=== PATIENT | male | born 1945 | race Caucasian/White ===

== ENCOUNTER 2018-05-12 15:38 | Inpatient (IN) | payer MEDICARE, OTHER ==
[~2018-05-12] VITALS: Ht 175.3 cm; Wt 63.1 kg
[2018-05-12] MEDS: AMINO AC 3%/ELECTROLYTE/GLYCER 1,000 ML IV SCH (16:45)
[2018-05-12] MEDS ORDERED: BISACODYL 10 MG SUPP.RECT. PR PRN (16:45)
[2018-05-12 17:00] VITALS: BP 132/69
[2018-05-12 18:17] LABS: BASO % 0 % (0-3); EOS # 0.1 x10^3/uL (0.0-0.7); EOS % 1 % (0-3); HEMATOCRIT 28.5 % (39.0-53.0); HEMOGLOBIN 9.2 g/dL (13.0-17.5); LYMPH # 0.8 x10^3/uL (1.0-4.8); LYMPH % 9 % (24-48); MEAN CORPUSCULAR HEMOGLOBIN 29 pg (25-35); MEAN CORPUSCULAR HGB CONC 32 g/dL (31-37); MEAN CORPUSCULAR VOLUME 89 fL (79-100); MONO # 0.8 x10^3/uL (0.0-1.1); MONO % 10 % (0-9); NEUT # 6.4 x10^3uL (1.8-7.7); NEUT % 80 % (31-73); PLATELET COUNT 210 x10^3/uL (140-400); RED BLOOD COUNT 3.19 x10^6/uL (4.30-5.70); RED CELL DISTRIBUTION WIDTH 13.9 % (11.5-14.5); WHITE BLOOD COUNT 8.1 x10^3/uL (4.0-11.0)
[2018-05-12 18:39] LABS: ALBUMIN 2.4 g/dL (3.4-5.0); ALBUMIN/GLOBULIN RATIO 0.6 (1.0-1.7); CALCIUM 8.5 mg/dL (8.5-10.1); CREATININE 0.8 mg/dL (0.7-1.3); GFR 94.5; TOTAL BILIRUBIN 0.3 mg/dL (0.2-1.0); TOTAL PROTEIN 6.3 g/dL (6.4-8.2)
[2018-05-12] MEDS ORDERED: LINA5TAB PO (18:41)
[2018-05-12] MEDS ORDERED: GLIP5TAB3 PO (18:41)
[2018-05-12] MEDS ORDERED: ONDA4TAB12 PO (18:41)
[2018-05-12] MEDS ORDERED: TRAM50TA PO (18:41)
[2018-05-12] MEDS ORDERED: DONE10TA61 PO (18:41)
[2018-05-12] MEDS ORDERED: PANT20TA2 PO (18:41)
[2018-05-12] MEDS ORDERED: LIDO30CR TP (18:41)
[2018-05-12] MEDS ORDERED: CLOP75TA PO (18:41)
[2018-05-12] MEDS ORDERED: INSU100I13 SQ (18:41)
[2018-05-12] MEDS ORDERED: SERT50TA PO (18:41)
[2018-05-12] MEDS ORDERED: LISI10TA2 PO (18:41)
[2018-05-12] MEDS ORDERED: DOCU100C28 PO (18:41)
[2018-05-12 19:00] VITALS: BP 144/86
[2018-05-12] MEDS: INSULIN GLARGINE 300 UNITS/3 ML INSULN.PEN. SQ SCH (21:00)
[2018-05-13] VITALS (12 sets, daily range): BP systolic 115–153; BP diastolic 58–99
[2018-05-13] MEDS: AMINO AC 3%/ELECTROLYTE/GLYCER 1,000 ML IV SCH ×2 (06:47→17:23)
--- NOTE | 2018-05-13 09:17 | NUR ---
IP: Pt is mrsa screen + from [facility] requiring contact precautions.
--- NOTE | 2018-05-13 10:09 | HP ---
ADMIT DATE: 05/12/2018 HISTORY OF PRESENT ILLNESS: The patient is a 73-year-old male patient who was apparently seen at the [facility] in [place] for abdominal pain as he had left-sided inguinal hernia that became painful. He denied any nausea, vomiting. He did say that he was passing gas, but has not had any bowel movement since last Saturday. He was offered to be transferred to [facility] and/or the [facility] in [facility], but the family declined and wanted him to stay around this area, he was thus admitted to [facility] where I saw him yesterday morning. Yesterday When I saw him, he continued to complain of abdominal pain, mostly in the left lower quadrant. He had large what seemed to be left inguinal hernia that was tender to touch and was not completely reducible. He apparently had had a CT scan of the abdomen and pelvis with contrast dye at the [facility], which showed that he had left inguinal hernia containing small bowel with short segment dilated small bowel in the left lower abdomen with air fluid levels up to 4.2 cm in diameter and some mildly dilated small bowel loop in the left abdomen also with air fluid level and there was no evidence of bowel obstruction or focal inflammation. He had tiny calcification, the appendix was normal size and no adjacent fat stranding and because he continued to complain of pain, tenderness in that area and because of the finding of the CT scan, I recommended that he be transferred to [facility] to be evaluated by the surgical team. PAST MEDICAL HISTORY: Significant for type 2 diabetes. He has apparently urinary retention with neurogenic bladder requiring indwelling Haynes catheter. He has severe osteoporosis, multiple compression fractures of his thoracic and lumbar vertebrae, has severe kyphoscoliosis, has also coronary artery disease. PAST SURGICAL HISTORY: Apparently unremarkable. FAMILY HISTORY: Noncontributory. SOCIAL HISTORY: He is , lives with his at home. His is very supportive. He does not smoke, drink alcohol or use recreational drugs. He normally has all his health care needs at the [facility]. ALLERGIES: HE IS ALLERGIC TO DICLOFENAC, TETANUS AND IMMUNOGLOBULIN. MEDICATIONS: He is normally on Colace 100 mg daily, finasteride 5 mg daily, linagliptin 5 mg daily, lisinopril 10 mg once a day, Plavix 75 mg once a day, Protonix 40 mg once a day, glipizide 5 mg twice a day. He is on insulin and Lantus, sertraline 50 mg at bedtime, Aricept 10 mg at bedtime, ondansetron 8 mg every 8 hours, tramadol 50 mg as needed. He was also on procalamine 80 mL per hour, bisacodyl 10 mg suppositories. PHYSICAL EXAMINATION: GENERAL: When I examined him, he looked well and was clearly in no apparent respiratory distress, pale, but no jaundice, cyanosis, or thyromegaly. No jugular venous distention. No lower limb edema. VITAL SIGNS: His heart rate was 54, blood pressure was 131/78, temperature was 98.6, respiratory rate 22 and oxygen saturation was 94% on room air. HEAD, EYES, EARS, NOSE AND THROAT: Showed normocephalic, atraumatic. NECK: Supple. HEART: Showed normal first and second heart sounds with no gallop, rub or murmur. CHEST: Clear to auscultation. No crepitation or rhonchi. ABDOMEN: Distended, soft, nontender. There is no guarding or rigidity. No organomegaly. He has large left-sided inguinal hernia that is reducible, but the patient has pain. His bowel sounds are normal. NEUROLOGIC: He was awake, alert, responding appropriately. All his cranial nerves were intact. EXTREMITIES: He moves all extremities without difficulty. He ambulates with a walker. He has severe kyphoscoliosis due to multiple compression fractures of the thoracic and lumbar vertebra. LABORATORY DATA: At [facility] yesterday showed a white cell count of 8500, hemoglobin was 9, hematocrit 27, MCV 89 and platelet count was normal. His serum sodium was 140, potassium 3.6, chloride 106, bicarbonate 28, anion gap of 6, BUN 25, creatinine 0.8, estimated GFR was 94 mL per minute. His glucose was 101, calcium was 7.7. His D-dimer was high at 2.65. Urinalysis showed the urine was yellow, clear with a pH of 7, specific gravity of 1.010. The urine was negative for protein, glucose, ketones, trace of blood, positive for nitrite and moderate amount of leukocyte esterase, 11-20 wbc's and moderate amount of bacteria. ASSESSMENT AND PLAN: Given finding on his CT scan and fact that there is dilated small bowel and he has some complaint of pain in that area, I recommended transferring him to [facility]. I will consult the surgical team. Apparently, he was seen before by surgical team and they did not recommend any surgical intervention as long as he has no symptoms. Meanwhile, I can get him n.p.o., continue with procalamine till he is evaluated by the surgical team. CLARITA SOLIZ MD DR: RIC/jon JOB#: [id number] / [id number]
--- NOTE | 2018-05-13 11:43 | NUR ---
CODE STATUS: Per pt and , pt full code.
--- NOTE | 2018-05-13 11:43 | PDOC2 ---
CONSULT Date of Consult Date of Consult DATE: 05/13/18 TIME: 11:28 Reason for Consult Reason for Consult: left inguinal hernia Referring Physician Referring Physician: Dr Ayala Identification/Chief Complaint Chief Complaint LLQ pain Source Source: Chart review, Patient History of Present Illness Reason for Visit: Mr Law is a 73 yo gentleman who has had a left inguinal hernia for some time. He has been having LLQ pain and left inguinal pain of late. A recent CT scan done at the [facility] in [place] reportedly showed small bowel in the hernia with an element of obstruction. He was offered transfer to [facility] or the [facility] but he preferred to come to [facility]. Past Medical History Cardiovascular: CAD Pulmonary: No pertinent hx GI: Constipation Musculoskeletal: Osteoarthritis, Other (kyphosis) Endocrine: Diabetes Past Surgical History Past Surgical History: No pertinent history Family History Family History: No Significant Social History No ALCOHOL: none Drugs: None Lives: with Family Current Medications Current Medications Current Medications Amino Acids/ Glycerin/ Electrolytes 1,000 ml @ 80 mls/hr [id number] IV ; Start 02/17 at 16:45 Bisacodyl (Dulcolax Supp) 10 mg PRN DAILY PRN [place] CONSTIPATION; Start 05/12/18 at 16:45 Insulin Glargine (Lantus) 11 units QHS SQ ; Start 05/12/18 at 21:00 Active Scripts Active Reported Tramadol Hcl 50 Mg Tablet 50 Mg PO Q6HRS PRN Glucotrol (Glipizide) 5 Mg Tablet 1 Tab PO BID Lantus Solostar (Insulin Glargine,Hum.rec.anlog) 100 Unit/1 Ml Insuln.pen 11 Unit SQ QHS Tradjenta (Linagliptin) 5 Mg Tablet 5 Mg PO DAILY Protonix (Pantoprazole Sodium) 20 Mg Tablet. 2 Tab PO DAILY Zoloft (Sertraline Hcl) 50 Mg Tablet 1 Tab PO DAILY Lisinopril 10 Mg Tablet 1 Tab PO DAILY Clopidogrel (Clopidogrel Bisulfate) 75 Mg Tablet 1 Tab PO DAILY Aricept (Donepezil Hcl) 10 Mg Tablet 1 Tab PO QHS Docusate Sodium 100 Mg Capsule 1 Cap PO PRN DAILY PRN Lidocaine-Prilocaine Cream (Lidocaine/Prilocaine) 30 Gm Cream..g. 1 Anny TP PRN BID PRN Ondansetron Odt (Ondansetron) 4 Mg Tab.rapdis 1 Tab PO PRN Q6-8HRS Allergies Allergies: Coded Allergies: I S O L A T I O N *CONTACT* (Verified Allergy, Unknown, 05/13/18) mrsa diclofenac (Verified Allergy, Unknown, 05/12/18) tetanus immune globulin (Verified Allergy, Unknown, 05/12/18) ROS Genitourinary: YES Retention, YES Other (neurogenic bladder) Physical Exam General: Alert, No acute distress, Other (chronically ill appearing gentleman in NAD) HEENT: Atraumatic Lungs: Normal air movement Heart: Regular rate Abdomen: Soft, Other (reducible left inguinal fullness) Extremities: Other (arthritic changes) Neuro: Normal speech MUSCULOSKELETAL: Other (marked kyphosis) Vitals VITALS Vital Signs Date Time Temp Pulse Resp B/P (MAP) Pulse Ox O2 Delivery O2 Flow Rate FiO2 05/13/18 11:17 99.4 56 18 139/64 (89) 95 Room Air 99.4 Labs Labs Laboratory Tests Test 05/12/18 18:00 05/12/18 20:50 05/13/18 07:39 White Blood Count 8.1 x10^3/uL (4.0-11.0) Red Blood Count 3.19 x10^6/uL (4.30-5.70) Hemoglobin 9.2 g/dL (13.0-17.5) Hematocrit 28.5 % (39.0-53.0) Mean Corpuscular Volume 89 fL (79-100) Mean Corpuscular Hemoglobin 29 pg (25-35) Mean Corpuscular Hemoglobin Concent 32 g/dL (31-37) Red Cell Distribution Width 13.9 % (11.5-14.5) Platelet Count 210 x10^3/uL (140-400) Neutrophils (%) (Auto) 80 % (31-73) Lymphocytes (%) (Auto) 9 % (24-48) Monocytes (%) (Auto) 10 % (0-9) Eosinophils (%) (Auto) 1 % (0-3) Basophils (%) (Auto) 0 % (0-3) Neutrophils # (Auto) 6.4 x10^3uL (1.8-7.7) Lymphocytes # (Auto) 0.8 x10^3/uL (1.0-4.8) Monocytes # (Auto) 0.8 x10^3/uL (0.0-1.1) Eosinophils # (Auto) 0.1 x10^3/uL (0.0-0.7) Basophils # (Auto) 0.0 x10^3/uL (0.0-0.2) Sodium Level 139 mmol/L (136-145) Potassium Level 4.0 mmol/L (3.5-5.1) Chloride Level 103 mmol/L (98-107) Carbon Dioxide Level 28 mmol/L (21-32) Anion Gap 8 (6-14) Blood Urea Nitrogen 20 mg/dL (8-26) Creatinine 0.8 mg/dL (0.7-1.3) Estimated GFR (Cockcroft-Gault) 94.5 BUN/Creatinine Ratio 25 (6-20) Glucose Level 164 mg/dL (70-99) Calcium Level 8.5 mg/dL (8.5-10.1) Total Bilirubin 0.3 mg/dL (0.2-1.0) Aspartate Amino Transf (AST/SGOT) 19 U/L (15-37) Alanine Aminotransferase (ALT/SGPT) 15 U/L (16-63) Alkaline Phosphatase 65 U/L (46-116) Lactate Dehydrogenase 131 U/L (85-227) Total Protein 6.3 g/dL (6.4-8.2) Albumin 2.4 g/dL (3.4-5.0) Albumin/Globulin Ratio 0.6 (1.0-1.7) Glucose (Fingerstick) 165 mg/dL (70-99) 214 mg/dL (70-99) Laboratory Tests Test 05/12/18 18:00 05/12/18 20:50 05/13/18 07:39 White Blood Count 8.1 x10^3/uL (4.0-11.0) Red Blood Count 3.19 x10^6/uL (4.30-5.70) Hemoglobin 9.2 g/dL (13.0-17.5) Hematocrit 28.5 % (39.0-53.0) Mean Corpuscular Volume 89 fL (79-100) Mean Corpuscular Hemoglobin 29 pg (25-35) Mean Corpuscular Hemoglobin Concent 32 g/dL (31-37) Red Cell Distribution Width 13.9 % (11.5-14.5) Platelet Count 210 x10^3/uL (140-400) Neutrophils (%) (Auto) 80 % (31-73) Lymphocytes (%) (Auto) 9 % (24-48) Monocytes (%) (Auto) 10 % (0-9) Eosinophils (%) (Auto) 1 % (0-3) Basophils (%) (Auto) 0 % (0-3) Neutrophils # (Auto) 6.4 x10^3uL (1.8-7.7) Lymphocytes # (Auto) 0.8 x10^3/uL (1.0-4.8) Monocytes # (Auto) 0.8 x10^3/uL (0.0-1.1) Eosinophils # (Auto) 0.1 x10^3/uL (0.0-0.7) Basophils # (Auto) 0.0 x10^3/uL (0.0-0.2) Sodium Level 139 mmol/L (136-145) Potassium Level 4.0 mmol/L (3.5-5.1) Chloride Level 103 mmol/L (98-107) Carbon Dioxide Level 28 mmol/L (21-32) Anion Gap 8 (6-14) Blood Urea Nitrogen 20 mg/dL (8-26) Creatinine 0.8 mg/dL (0.7-1.3) Estimated GFR (Cockcroft-Gault) 94.5 BUN/Creatinine Ratio 25 (6-20) Glucose Level 164 mg/dL (70-99) Calcium Level 8.5 mg/dL (8.5-10.1) Total Bilirubin 0.3 mg/dL (0.2-1.0) Aspartate Amino Transf (AST/SGOT) 19 U/L (15-37) Alanine Aminotransferase (ALT/SGPT) 15 U/L (16-63) Alkaline Phosphatase 65 U/L (46-116) Lactate Dehydrogenase 131 U/L (85-227) Total Protein 6.3 g/dL (6.4-8.2) Albumin 2.4 g/dL (3.4-5.0) Albumin/Globulin Ratio 0.6 (1.0-1.7) Glucose (Fingerstick) 165 mg/dL (70-99) 214 mg/dL (70-99) Assessment/Plan Assessment/Plan left inguinal hernia with intermittent incarceration creating at least a partial SBO severe osteoporosis offered repair with possible l/s explained risks including but not limited to bleeding, infection, recurrence, possible need for an open procedure with bowel resection he understands and will proceed Thanks for consult KEZIA RUANO MD May 13, 2018 11:43
[2018-05-13] MEDS ORDERED: LIDOCAINE 2% PF Vial for OR 5 ML VIAL. ONE (12:00)
[2018-05-13] MEDS ORDERED: SUCCINYLCHOLINE 200 MG/10 ML VIAL. ONE (12:00)
[2018-05-13] MEDS ORDERED: ROCURONIUM 50 MG/5 ML VIAL. ONE (12:00)
[2018-05-13] MEDS ORDERED: fentaNYL PF VIAL 100 MCG/2 ML VIAL ONE (12:00)
[2018-05-13] MEDS ORDERED: PROPOFOL 20 ML IV ONE (12:00)
[2018-05-13] MEDS ORDERED: IV RINGERS,LACTATED 1000ML 1,000 ML IV SCH (12:13)
[2018-05-13] MEDS ORDERED: LIDOCAINE 1% PF 2 ML VIAL. ID PRN (12:15)
[2018-05-13] MEDS ORDERED: PROCHLORPERAZINE 10 MG/2 ML VIAL. IV PRN (12:15)
[2018-05-13] MEDS ORDERED: HYDROmorphone 2 MG/ML VIAL IV PRN (12:15)
[2018-05-13] MEDS ORDERED: MORPHINE SULFATE 4 MG/ML VIAL. IV PRN (12:15)
[2018-05-13] MEDS ORDERED: fentaNYL PF VIAL 100 MCG/2 ML VIAL IV PRN ×2 (12:15)
--- NOTE | 2018-05-13 12:30 | NUR ---
SW following for discharge planning. Discussed with RN, pt is from home with , uses a walker and has had a manager long term [facility]. deciding on possible surgery. MANUEL will continue to follow.
[2018-05-13] MEDS ORDERED: BUPIVAC MPF-EPI 0.5%-1:200000 30 ML VIAL. ONE (12:35)
[2018-05-13] MEDS ORDERED: ONDANSETRON PF 4 MG/2 ML VIAL. ONE (13:35)
[2018-05-13] MEDS ORDERED: DESFLURANE 31 TO 60 MINUTES IH ONE (13:35)
[2018-05-13] MEDS ORDERED: DEXAMETHASONE SOD PHOS 20 MG/5 ML VIAL. ONE (13:35)
[2018-05-13] MEDS ORDERED: GLYCOPYRROLATE 1 MG/5 ML VIAL. ONE (13:42)
[2018-05-13] MEDS ORDERED: NEOSTIGMINE 10 MG/10 ML VIAL. ONE (13:42)
--- NOTE | 2018-05-13 14:46 | PDOC ---
BRIEF OPERATIVE NOTE Date: May 13, 2018 Pre-Op Diagnosis incarcerated left inguinal hernia Post-Op Diagnosis same Procedure Performed d/x l/s open repair of left inguinal hernia with mesh Surgeon Jeff Anesthesia Type: General Blood Loss 10cc IV Fluid 800cc Specimens Obtained hernia sack Findings large indirect left inguinal hernia, no evidence bowel compromise Complications none Operative Note WK # [id number] KEZIA RUANO MD May 13, 2018 14:46
[2018-05-13] MEDS ORDERED: ONDANSETRON ODT 4 MG TAB.RAPDIS. PO PRN (15:00)
[2018-05-13] MEDS ORDERED: INSULIN LISPRO 300 UNITS/3 ML INSULN.PEN. SQ ONE (15:00)
[2018-05-13] MEDS ORDERED: LIDOCAINE/PRILOCAINE TOPICAL CREAM 5GM TUBE. TP PRN (15:00)
--- NOTE | 2018-05-13 15:03 | OP ---
DATE OF SURGERY: 05/13/2018 PREOPERATIVE DIAGNOSIS: Incarcerated left inguinal hernia. POSTOPERATIVE DIAGNOSIS: Incarcerated left inguinal hernia. PROCEDURE: 1. Diagnostic laparoscopy. 2. Open repair, left inguinal hernia with mesh. SURGEON: Kezia Ruano MD. ANESTHESIA: General endotracheal. ESTIMATED BLOOD LOSS: 10 mL. INTRAVENOUS FLUID: 800 mL. INDICATIONS: The patient is a 73-year-old gentleman with a recent CT at the [facility] showing a partial obstruction of small bowel secondary to incarceration of left inguinal hernia. He is brought for repair. OPERATIVE FINDINGS: Laparoscopic evaluation showed no evidence of bowel compromise. The small bowel had reduced into the abdomen on induction of anesthesia. A large indirect hernia sac was present. Laparoscopically, a small right inguinal hernia was also present. DESCRIPTION OF PROCEDURE: The patient brought to the operating suite, given a general endotracheal anesthetic and the abdomen prepped and draped in usual sterile fashion. An epigastric incision was infiltrated with local anesthetic, incised and a 5-mm Visiport used to safely gain access into the abdominal cavity, taking care to avoid injury to abdominal contents. Under direct vision, a right lower quadrant port was similarly placed. The abdomen was carefully inspected with results as noted above. Pneumoperitoneum released. Ports removed and the left inguinal incision was infiltrated with local anesthetic, incised and dissection carried down to the external oblique fascia. This was opened and the cord stripped off the pubis. [place] drain placed around it. Dissection back to the internal ring revealed a large indirect hernia sac, which on mobilization was opened. In light of this under direct vision, the neck of the sac was ligated with a stick tie of 0 Vicryl. The excess sac was excised and the stump retracted spontaneously into the abdominal cavity. This was held in reduction with a large plug of Phasix mesh, tacked with 2-0 PDS, taking care to avoid injury to adjacent vessels. A keyhole patch was fashioned and placed over the floor of the canal. The slit closed with a single 2-0 PDS stitch. Area checked for hemostasis and when present and a correct sponge count was obtained, the cord was returned to its normal anatomical position. The external oblique fascia closed over in running fashion with 3-0 Vicryl. Subcutaneous approximated with 3-0 Vicryl, skin closed with subcuticular 4-0 Monocryl. Steri-Strips and sterile dressings applied. The patient was awakened from his anesthetic and taken to the recovery room in satisfactory condition. KEZIA RUANO MD DR: YUMIKO/jon JOB#: [id number] / [id number]
[2018-05-13] MEDS ORDERED: DEXTROSE 50% 25 GM / 50ML DISP.SYRIN. IV PRN (17:00)
[2018-05-13] MEDS: HYDROcodone/APAP 5/325MG 1 TAB TABLET PO PRN (17:23)
[2018-05-13] MEDS: INSULIN LISPRO 300 UNITS/3 ML INSULN.PEN. SQ SCH (17:33)
[2018-05-13] MEDS ORDERED: INSULIN GLARGINE 300 UNITS/3 ML INSULN.PEN. SQ SCH (21:00)
[2018-05-13] MEDS: glipiZIDE 5 MG TABLET PO SCH (21:56)
[2018-05-13] MEDS: traMADol 50 MG TABLET PO PRN (21:56)
[2018-05-13] MEDS: DONEPEZIL HCL 10 MG TABLET. PO SCH (21:56)
[2018-05-13] MEDS: INSULIN GLARGINE 300 UNITS/3 ML INSULN.PEN. SQ SCH (22:00)
[2018-05-14 03:00] VITALS: BP 125/60
[2018-05-14 04:15] LABS: BASO % 0 % (0-3); EOS % 0 % (0-3); HEMATOCRIT 29.9 % (39.0-53.0); HEMOGLOBIN 9.8 g/dL (13.0-17.5); LYMPH # 0.7 x10^3/uL (1.0-4.8); LYMPH % 6 % (24-48); MEAN CORPUSCULAR HEMOGLOBIN 29 pg (25-35); MEAN CORPUSCULAR HGB CONC 33 g/dL (31-37); MEAN CORPUSCULAR VOLUME 89 fL (79-100); MONO % 9 % (0-9); NEUT # 9.6 x10^3uL (1.8-7.7); NEUT % 86 % (31-73); PLATELET COUNT 218 x10^3/uL (140-400); RED BLOOD COUNT 3.35 x10^6/uL (4.30-5.70); RED CELL DISTRIBUTION WIDTH 13.8 % (11.5-14.5); WHITE BLOOD COUNT 11.3 x10^3/uL (4.0-11.0)
[2018-05-14 04:40] LABS: ALBUMIN 2.3 g/dL (3.4-5.0); ALBUMIN/GLOBULIN RATIO 0.6 (1.0-1.7); CALCIUM 8.3 mg/dL (8.5-10.1); CREATININE 0.8 mg/dL (0.7-1.3); GFR 94.5; POTASSIUM 4.7 mmol/L (3.5-5.1); TOTAL BILIRUBIN 0.3 mg/dL (0.2-1.0); TOTAL PROTEIN 6.3 g/dL (6.4-8.2)
[2018-05-14] MEDS: AMINO AC 3%/ELECTROLYTE/GLYCER 1,000 ML IV SCH ×2 (06:01→17:34)
[2018-05-14] MEDS: HYDROcodone/APAP 5/325MG 1 TAB TABLET PO PRN ×2 (06:04→15:26)
[2018-05-14 06:12] LABS: % LYMPHS 5 % (24-48); % MONOS 2 % (0-10); % SEGS 93 % (35-66); PLT ESTIMATE ADEQUATE (ADEQUATE)
[2018-05-14 07:00] VITALS: BP 120/60
[2018-05-14] MEDS: INSULIN LISPRO 300 UNITS/3 ML INSULN.PEN. SQ SCH ×3 (08:00→17:00)
[2018-05-14] MEDS: LINAGLIPTIN 5 MG TABLET PO SCH (08:48)
[2018-05-14] MEDS: LISINOPRIL 10 MG TABLET PO SCH (08:50)
[2018-05-14] MEDS: glipiZIDE 5 MG TABLET PO SCH ×3 (08:51→17:31)
[2018-05-14] MEDS: PANTOPRAZOLE 40 MG TABLET.DR. PO SCH (08:53)
[2018-05-14] MEDS ORDERED: SERTRALINE 50 MG TABLET. PO SCH (09:00)
[2018-05-14] MEDS: DOCUSATE SODIUM 100 MG CAPSULE. PO PRN (09:29)
[2018-05-14] MEDS: traMADol 50 MG TABLET PO PRN ×2 (09:30→20:47)
[2018-05-14 11:00] VITALS: BP 114/67
--- NOTE | 2018-05-14 11:23 | PDOC ---
SURGICAL PROGRESS NOTE Subjective POD 1 adequate pain control Vital Signs Vital Signs Date Time Temp Pulse Resp B/P (MAP) Pulse Ox O2 Delivery O2 Flow Rate FiO2 05/14/18 10:37 Room Air 05/14/18 08:50 48 120/60 05/14/18 07:00 98.6 18 94 98.6 05/13/18 14:45 10 I&O Intake and Output 05/14/18 06:59 Intake Total 590 ml Output Total 2260 ml Balance -1670 ml Intake Oral 590 ml Output Urine Total 2250 ml Estimated Blood Loss 10 ml PATIENT HAS A CAMPBELL: Yes General: Alert, No acute distress Abdomen: Soft Labs Laboratory Tests Test 05/12/18 18:00 05/12/18 20:50 05/13/18 07:39 05/13/18 10:56 White Blood Count 8.1 x10^3/uL (4.0-11.0) Red Blood Count 3.19 x10^6/uL (4.30-5.70) Hemoglobin 9.2 g/dL (13.0-17.5) Hematocrit 28.5 % (39.0-53.0) Mean Corpuscular Volume 89 fL (79-100) Mean Corpuscular Hemoglobin 29 pg (25-35) Mean Corpuscular Hemoglobin Concent 32 g/dL (31-37) Red Cell Distribution Width 13.9 % (11.5-14.5) Platelet Count 210 x10^3/uL (140-400) Neutrophils (%) (Auto) 80 % (31-73) Lymphocytes (%) (Auto) 9 % (24-48) Monocytes (%) (Auto) 10 % (0-9) Eosinophils (%) (Auto) 1 % (0-3) Basophils (%) (Auto) 0 % (0-3) Neutrophils # (Auto) 6.4 x10^3uL (1.8-7.7) Lymphocytes # (Auto) 0.8 x10^3/uL (1.0-4.8) Monocytes # (Auto) 0.8 x10^3/uL (0.0-1.1) Eosinophils # (Auto) 0.1 x10^3/uL (0.0-0.7) Basophils # (Auto) 0.0 x10^3/uL (0.0-0.2) Sodium Level 139 mmol/L (136-145) Potassium Level 4.0 mmol/L (3.5-5.1) Chloride Level 103 mmol/L (98-107) Carbon Dioxide Level 28 mmol/L (21-32) Anion Gap 8 (6-14) Blood Urea Nitrogen 20 mg/dL (8-26) Creatinine 0.8 mg/dL (0.7-1.3) Estimated GFR (Cockcroft-Gault) 94.5 BUN/Creatinine Ratio 25 (6-20) Glucose Level 164 mg/dL (70-99) Calcium Level 8.5 mg/dL (8.5-10.1) Total Bilirubin 0.3 mg/dL (0.2-1.0) Aspartate Amino Transf (AST/SGOT) 19 U/L (15-37) Alanine Aminotransferase (ALT/SGPT) 15 U/L (16-63) Alkaline Phosphatase 65 U/L (46-116) Lactate Dehydrogenase 131 U/L (85-227) Total Protein 6.3 g/dL (6.4-8.2) Albumin 2.4 g/dL (3.4-5.0) Albumin/Globulin Ratio 0.6 (1.0-1.7) Glucose (Fingerstick) 165 mg/dL (70-99) 214 mg/dL (70-99) 220 mg/dL (70-99) Test 05/13/18 14:36 05/13/18 16:50 05/13/18 20:52 05/14/18 03:25 Glucose (Fingerstick) 226 mg/dL (70-99) 186 mg/dL (70-99) 349 mg/dL (70-99) White Blood Count 11.3 x10^3/uL (4.0-11.0) Red Blood Count 3.35 x10^6/uL (4.30-5.70) Hemoglobin 9.8 g/dL (13.0-17.5) Hematocrit 29.9 % (39.0-53.0) Mean Corpuscular Volume 89 fL (79-100) Mean Corpuscular Hemoglobin 29 pg (25-35) Mean Corpuscular Hemoglobin Concent 33 g/dL (31-37) Red Cell Distribution Width 13.8 % (11.5-14.5) Platelet Count 218 x10^3/uL (140-400) Neutrophils (%) (Auto) 86 % (31-73) Lymphocytes (%) (Auto) 6 % (24-48) Monocytes (%) (Auto) 9 % (0-9) Eosinophils (%) (Auto) 0 % (0-3) Basophils (%) (Auto) 0 % (0-3) Neutrophils # (Auto) 9.6 x10^3uL (1.8-7.7) Lymphocytes # (Auto) 0.7 x10^3/uL (1.0-4.8) Monocytes # (Auto) 1.0 x10^3/uL (0.0-1.1) Eosinophils # (Auto) 0.0 x10^3/uL (0.0-0.7) Basophils # (Auto) 0.0 x10^3/uL (0.0-0.2) Segmented Neutrophils % 93 % (35-66) Lymphocytes % 5 % (24-48) Monocytes % 2 % (0-10) Platelet Estimate Adequate (ADEQUATE) Sodium Level 135 mmol/L (136-145) Potassium Level 4.7 mmol/L (3.5-5.1) Chloride Level 100 mmol/L (98-107) Carbon Dioxide Level 28 mmol/L (21-32) Anion Gap 7 (6-14) Blood Urea Nitrogen 20 mg/dL (8-26) Creatinine 0.8 mg/dL (0.7-1.3) Estimated GFR (Cockcroft-Gault) 94.5 BUN/Creatinine Ratio 25 (6-20) Glucose Level 302 mg/dL (70-99) Calcium Level 8.3 mg/dL (8.5-10.1) Total Bilirubin 0.3 mg/dL (0.2-1.0) Aspartate Amino Transf (AST/SGOT) 14 U/L (15-37) Alanine Aminotransferase (ALT/SGPT) 14 U/L (16-63) Alkaline Phosphatase 68 U/L (46-116) Total Protein 6.3 g/dL (6.4-8.2) Albumin 2.3 g/dL (3.4-5.0) Albumin/Globulin Ratio 0.6 (1.0-1.7) Test 05/14/18 07:39 Glucose (Fingerstick) 211 mg/dL (70-99) Laboratory Tests Test 2/12/19 14:36 05/13/18 16:50 05/13/18 20:52 05/14/18 03:25 Glucose (Fingerstick) 226 mg/dL (70-99) 186 mg/dL (70-99) 349 mg/dL (70-99) White Blood Count 11.3 x10^3/uL (4.0-11.0) Red Blood Count 3.35 x10^6/uL (4.30-5.70) Hemoglobin 9.8 g/dL (13.0-17.5) Hematocrit 29.9 % (39.0-53.0) Mean Corpuscular Volume 89 fL (79-100) Mean Corpuscular Hemoglobin 29 pg (25-35) Mean Corpuscular Hemoglobin Concent 33 g/dL (31-37) Red Cell Distribution Width 13.8 % (11.5-14.5) Platelet Count 218 x10^3/uL (140-400) Neutrophils (%) (Auto) 86 % (31-73) Lymphocytes (%) (Auto) 6 % (24-48) Monocytes (%) (Auto) 9 % (0-9) Eosinophils (%) (Auto) 0 % (0-3) Basophils (%) (Auto) 0 % (0-3) Neutrophils # (Auto) 9.6 x10^3uL (1.8-7.7) Lymphocytes # (Auto) 0.7 x10^3/uL (1.0-4.8) Monocytes # (Auto) 1.0 x10^3/uL (0.0-1.1) Eosinophils # (Auto) 0.0 x10^3/uL (0.0-0.7) Basophils # (Auto) 0.0 x10^3/uL (0.0-0.2) Segmented Neutrophils % 93 % (35-66) Lymphocytes % 5 % (24-48) Monocytes % 2 % (0-10) Platelet Estimate Adequate (ADEQUATE) Sodium Level 135 mmol/L (136-145) Potassium Level 4.7 mmol/L (3.5-5.1) Chloride Level 100 mmol/L (98-107) Carbon Dioxide Level 28 mmol/L (21-32) Anion Gap 7 (6-14) Blood Urea Nitrogen 20 mg/dL (8-26) Creatinine 0.8 mg/dL (0.7-1.3) Estimated GFR (Cockcroft-Gault) 94.5 BUN/Creatinine Ratio 25 (6-20) Glucose Level 302 mg/dL (70-99) Calcium Level 8.3 mg/dL (8.5-10.1) Total Bilirubin 0.3 mg/dL (0.2-1.0) Aspartate Amino Transf (AST/SGOT) 14 U/L (15-37) Alanine Aminotransferase (ALT/SGPT) 14 U/L (16-63) Alkaline Phosphatase 68 U/L (46-116) Total Protein 6.3 g/dL (6.4-8.2) Albumin 2.3 g/dL (3.4-5.0) Albumin/Globulin Ratio 0.6 (1.0-1.7) Test 05/14/18 07:39 Glucose (Fingerstick) 211 mg/dL (70-99) Assessment/Plan s/p repair left inguinal hernia advance diet as tolerated up and about KEZIA RUANO MD May 14, 2018 11:23
--- NOTE | 2018-05-14 11:58 | PN ---
DATE: 05/14/2018 SUBJECTIVE: The patient is resting slightly propped up in bed, in no apparent distress. Awake, alert. He apparently underwent diagnostic laparoscopy and open repair of left inguinal hernia with mesh. He is doing very well. He has had his dinner, and breakfast this morning. He is on a full-liquid diet and has not so far passed any bowel movement or flatus, but denied any complaint. Denied any nausea or vomiting. OBJECTIVE: GENERAL: When I saw him this morning, he looked pale, but no jaundice, cyanosis, or thyromegaly. No jugular venous distention. No limb edema. VITAL SIGNS: His heart rate was 48, blood pressure was 120/60, temperature was 98.6, respiratory rate was 18 and oxygen saturation was 94%. HEAD, EYES, EARS, NOSE AND THROAT: Showed normocephalic, atraumatic. NECK: Supple. HEART: Showed normal first and second heart sounds. No gallop, rub or murmur. CHEST: Clear to auscultation. No crepitation or rhonchi. ABDOMEN: Distended, soft, nontender. No guarding or rigidity. No organomegaly. All hernial orifices intact. Bowel sounds normal. NEUROLOGIC: He was hard of hearing, but otherwise all cranial nerves are intact. He moves extremities without difficulty. He does ambulate with the walker. LABORATORY DATA: His lab work showed a white cell count of 11,300; hemoglobin 9.8; hematocrit 29.9; MCV 89; and platelet count 218,000. His chemistry this morning showed a serum sodium of 135, potassium 4.7, chloride 100, bicarbonate 28, anion gap of 7, BUN 20, creatinine 0.8, estimated GFR was 94 mL per minute, his glucose was 302, calcium was 8.3. Total bilirubin, AST, ALT, alkaline phosphatase were normal. Total protein was 6.3, albumin 2.3. ASSESSMENT: Incarcerated left inguinal hernia, status post diagnostic laparoscopy and open repair of left inguinal hernia with mesh. The patient has multiple other medical problems including type 2 diabetes, neurogenic bladder with bladder outlet obstruction requiring indwelling Haynes catheter, severe osteoporosis, multiple compression fractures of his thoracic and lumbar spine with resultant severe kyphoscoliosis, coronary artery disease. CLARITA SOLIZ MD DR: RIC/jon JOB#: [id number] / [id number]
[2018-05-14 15:00] VITALS: BP 119/66
--- NOTE | 2018-05-14 16:26 | NUR ---
SW following for discharge planning. Discussed with RN. PT/OT recommending home health. RN notified. SW will continue to follow.
--- NOTE | 2018-05-14 18:06 | PATHOLOGY ---
[facility] Accession Number: [id number] . 01 Material submitted: . LEFT INGUINAL HERNIA SAC . 01 Clinical history: . Left inguinal hernia . 02 Diagnosis: Segment of fibromembranous and fibroadipose tissue, left inguinal herniorrhaphy: - Hernia sac showing congestion and focal mild chronic inflammation. (JPM/db; 05/14/2018) LBQ/05/14/2018 . 02 Electronically signed: . John Manuel MD, Pathologist NPI- [id number] . 01 Gross description: . Received in formalin labeled "Ani, Skyler, hernia sac," is a piece of fibromembranous tissue with small amounts of attached fibroadipose tissue measuring 4.9 x 3.4 x 1.2 cm. No nodules or lesions are identified. Agriculture Technician tissue is submitted in cassette A1. (TSD; 05/13/2018) TOB/TOB . 02 Pathologist provided ICD-10: K40.90 . 02 CPT . 621248 Specimen Comment: A courtesy copy of this report has been sent to Specimen Comment: [phone], , . Specimen Comment: Report sent to ,DR SOLIZ / DR SIMMONS Performed at: 01 [facility] [address], [place], [place] [id number] MD William Dobson MD Phone: [phone] Performed at: 02 [facility] [address] [place], [place] [id number] MD John Manuel MD Phone: [phone]
[2018-05-14 19:00] VITALS: BP 114/70
[2018-05-14] MEDS: DONEPEZIL HCL 10 MG TABLET. PO SCH (20:48)
[2018-05-14] MEDS: SERTRALINE 50 MG TABLET. PO SCH (20:48)
[2018-05-14] MEDS: INSULIN GLARGINE 300 UNITS/3 ML INSULN.PEN. SQ SCH (20:56)
[2018-05-14 23:00] VITALS: BP 110/60
[2018-05-15 03:00] VITALS: BP 134/68
[2018-05-15 04:50] LABS: HEMATOCRIT 29.5 % (39.0-53.0); HEMOGLOBIN 9.7 g/dL (13.0-17.5); RED BLOOD COUNT 3.32 x10^6/uL (4.30-5.70); RED CELL DISTRIBUTION WIDTH 14.3 % (11.5-14.5); WHITE BLOOD COUNT 11.1 x10^3/uL (4.0-11.0)
[2018-05-15 05:05] LABS: CALCIUM 8.3 mg/dL (8.5-10.1); CREATININE 0.7 mg/dL (0.7-1.3); GFR 110.2; POTASSIUM 4.3 mmol/L (3.5-5.1)
[2018-05-15] MEDS: AMINO AC 3%/ELECTROLYTE/GLYCER 1,000 ML IV SCH (06:04)
[2018-05-15 07:00] VITALS: BP 147/82
[2018-05-15] MEDS: PANTOPRAZOLE 40 MG TABLET.DR. PO SCH (07:37)
[2018-05-15] MEDS: INSULIN LISPRO 300 UNITS/3 ML INSULN.PEN. SQ SCH ×3 (08:00→17:31)
[2018-05-15] MEDS: DOCUSATE SODIUM 100 MG CAPSULE. PO PRN (08:36)
[2018-05-15] MEDS: HYDROcodone/APAP 5/325MG 1 TAB TABLET PO PRN ×2 (08:37→17:27)
[2018-05-15] MEDS: LINAGLIPTIN 5 MG TABLET PO SCH (08:37)
[2018-05-15] MEDS: glipiZIDE 5 MG TABLET PO SCH ×2 (08:37→17:27)
[2018-05-15] MEDS: LISINOPRIL 10 MG TABLET PO SCH (08:38)
[2018-05-15 11:00] VITALS: BP 108/55
--- NOTE | 2018-05-15 11:58 | PDOC ---
SURGICAL PROGRESS NOTE Subjective up to chair no complaints Vital Signs Vital Signs Date Time Temp Pulse Resp B/P (MAP) Pulse Ox O2 Delivery O2 Flow Rate FiO2 05/15/18 11:00 98.1 72 18 108/55 (72) 92 Room Air 98.1 I&O Intake and Output 05/15/18 06:59 Intake Total 880 ml Output Total 2650 ml Balance -1770 ml Intake Oral 880 ml Output Urine Total 2650 ml PATIENT HAS A CAMPBELL: Yes (chronic neurogenic bladder) General: Alert, No acute distress Extremities: Other (left groin incision c/d) Labs Laboratory Tests Test 05/13/18 14:36 05/13/18 16:50 05/13/18 20:52 05/14/18 03:25 Glucose (Fingerstick) 226 mg/dL (70-99) 186 mg/dL (70-99) 349 mg/dL (70-99) White Blood Count 11.3 x10^3/uL (4.0-11.0) Red Blood Count 3.35 x10^6/uL (4.30-5.70) Hemoglobin 9.8 g/dL (13.0-17.5) Hematocrit 29.9 % (39.0-53.0) Mean Corpuscular Volume 89 fL (79-100) Mean Corpuscular Hemoglobin 29 pg (25-35) Mean Corpuscular Hemoglobin Concent 33 g/dL (31-37) Red Cell Distribution Width 13.8 % (11.5-14.5) Platelet Count 218 x10^3/uL (140-400) Neutrophils (%) (Auto) 86 % (31-73) Lymphocytes (%) (Auto) 6 % (24-48) Monocytes (%) (Auto) 9 % (0-9) Eosinophils (%) (Auto) 0 % (0-3) Basophils (%) (Auto) 0 % (0-3) Neutrophils # (Auto) 9.6 x10^3uL (1.8-7.7) Lymphocytes # (Auto) 0.7 x10^3/uL (1.0-4.8) Monocytes # (Auto) 1.0 x10^3/uL (0.0-1.1) Eosinophils # (Auto) 0.0 x10^3/uL (0.0-0.7) Basophils # (Auto) 0.0 x10^3/uL (0.0-0.2) Segmented Neutrophils % 93 % (35-66) Lymphocytes % 5 % (24-48) Monocytes % 2 % (0-10) Platelet Estimate Adequate (ADEQUATE) Sodium Level 135 mmol/L (136-145) Potassium Level 4.7 mmol/L (3.5-5.1) Chloride Level 100 mmol/L (98-107) Carbon Dioxide Level 28 mmol/L (21-32) Anion Gap 7 (6-14) Blood Urea Nitrogen 20 mg/dL (8-26) Creatinine 0.8 mg/dL (0.7-1.3) Estimated GFR (Cockcroft-Gault) 94.5 BUN/Creatinine Ratio 25 (6-20) Glucose Level 302 mg/dL (70-99) Calcium Level 8.3 mg/dL (8.5-10.1) Total Bilirubin 0.3 mg/dL (0.2-1.0) Aspartate Amino Transf (AST/SGOT) 14 U/L (15-37) Alanine Aminotransferase (ALT/SGPT) 14 U/L (16-63) Alkaline Phosphatase 68 U/L (46-116) Total Protein 6.3 g/dL (6.4-8.2) Albumin 2.3 g/dL (3.4-5.0) Albumin/Globulin Ratio 0.6 (1.0-1.7) Test 05/14/18 07:39 05/14/18 11:59 05/14/18 17:30 05/14/18 20:20 Glucose (Fingerstick) 211 mg/dL (70-99) 181 mg/dL (70-99) 149 mg/dL (70-99) 218 mg/dL (70-99) Test 05/15/18 04:15 White Blood Count 11.1 x10^3/uL (4.0-11.0) Red Blood Count 3.32 x10^6/uL (4.30-5.70) Hemoglobin 9.7 g/dL (13.0-17.5) Hematocrit 29.5 % (39.0-53.0) Mean Corpuscular Volume 89 fL (79-100) Mean Corpuscular Hemoglobin 29 pg (25-35) Mean Corpuscular Hemoglobin Concent 33 g/dL (31-37) Red Cell Distribution Width 14.3 % (11.5-14.5) Platelet Count 224 x10^3/uL (140-400) Sodium Level 132 mmol/L (136-145) Potassium Level 4.3 mmol/L (3.5-5.1) Chloride Level 97 mmol/L (98-107) Carbon Dioxide Level 27 mmol/L (21-32) Anion Gap 8 (6-14) Blood Urea Nitrogen 19 mg/dL (8-26) Creatinine 0.7 mg/dL (0.7-1.3) Estimated GFR (Cockcroft-Gault) 110.2 Glucose Level 140 mg/dL (70-99) Calcium Level 8.3 mg/dL (8.5-10.1) Laboratory Tests Test 05/14/18 11:59 05/14/18 17:30 05/14/18 20:20 05/15/18 04:15 Glucose (Fingerstick) 181 mg/dL (70-99) 149 mg/dL (70-99) 218 mg/dL (70-99) White Blood Count 11.1 x10^3/uL (4.0-11.0) Red Blood Count 3.32 x10^6/uL (4.30-5.70) Hemoglobin 9.7 g/dL (13.0-17.5) Hematocrit 29.5 % (39.0-53.0) Mean Corpuscular Volume 89 fL (79-100) Mean Corpuscular Hemoglobin 29 pg (25-35) Mean Corpuscular Hemoglobin Concent 33 g/dL (31-37) Red Cell Distribution Width 14.3 % (11.5-14.5) Platelet Count 224 x10^3/uL (140-400) Sodium Level 132 mmol/L (136-145) Potassium Level 4.3 mmol/L (3.5-5.1) Chloride Level 97 mmol/L (98-107) Carbon Dioxide Level 27 mmol/L (21-32) Anion Gap 8 (6-14) Blood Urea Nitrogen 19 mg/dL (8-26) Creatinine 0.7 mg/dL (0.7-1.3) Estimated GFR (Cockcroft-Gault) 110.2 Glucose Level 140 mg/dL (70-99) Calcium Level 8.3 mg/dL (8.5-10.1) Assessment/Plan POD 2 repair [facility] advance diet, activity discharge when primary deems ready f/u with me in the [facility] office next KEZIA RUANO MD May 15, 2018 11:58
--- NOTE | 2018-05-15 14:14 | NUR ---
SW following. Discussed with RN. SW met with pt, pt does not think he needs home health. Pt gave permission for SW to speak with his . Pt's , Katiana reported pt has had [facility] in the past and that is who they would like to use again for PHYSICAL THERAPY ONLY. MANUEL faxed referral to [facility] (ph:[phone], fax: [phone]). RN notified. MANUEL will continue to follow.
--- NOTE | 2018-05-15 14:39 | PN ---
DATE: 05/15/2018 SUBJECTIVE: The patient is resting, slightly propped up in bed, in no apparent distress, awake, alert. On questioning him, he continued to have some abdominal pain, has no nausea, no vomiting, has not had any bowel movement so far, but he has passed flatus multiple times. He is on a clear liquid diet, will advance at lunchtime. OBJECTIVE: GENERAL: When I examined him, he looked pale, but not jaundiced or cyanosed. No lymphadenopathy, no thyromegaly. No jugular venous distention. No limb edema. VITAL SIGNS: His heart rate was 67, blood pressure was 147/82, temperature was 98.1, respiratory rate was 18, and oxygen saturation was 92%. The rest of clinical examination is stable, has not really changed. His intake over the last 24 hours was 590, output was 2260. LABORATORY DATA: As of this morning, his serum sodium was 132, potassium 4.3, chloride 97, bicarbonate 27, anion gap of 8, BUN 19, creatinine 0.7, estimated GFR was 110 mL per minute, his glucose 140, calcium was 8.3. His white cell count was 11,000, hemoglobin 9.7, hematocrit 29.5, MCV 89 and platelet count 224,000. ASSESSMENT: 1. Incarcerated left inguinal hernia, status post diagnostic laparoscopy with open repair of left inguinal hernia with mesh. 2. Postoperative paralytic ileus, resolving. The patient has no nausea, no vomiting, has passed flatus, although he has not had any bowel movement yet. We will advance his diet as tolerated. 3. Neurogenic bladder with bladder outlet obstruction, requiring indwelling Haynes catheter. 4. Severe osteoporosis with multiple compression fractures of thoracic and lumbar spine with resultant severe kyphoscoliosis. 5. Coronary artery disease. PLAN: To advance diet as tolerated. Continue with physical and occupational therapy. CLARITA SOLIZ MD DR: RIC/jon JOB#: [id number] / [id number]
[2018-05-15 15:00] VITALS: BP 101/58
[2018-05-15 19:00] VITALS: BP 85/46
[2018-05-15] MEDS: DONEPEZIL HCL 10 MG TABLET. PO SCH (20:43)
[2018-05-15] MEDS: SERTRALINE 50 MG TABLET. PO SCH (20:43)
[2018-05-15] MEDS: INSULIN GLARGINE 300 UNITS/3 ML INSULN.PEN. SQ SCH (20:49)
[2018-05-15 23:19] VITALS: BP 89/52
[2018-05-16 01:43] VITALS: BP 99/56
[2018-05-16 03:00] VITALS: BP 104/65
[2018-05-16] MEDS: PANTOPRAZOLE 40 MG TABLET.DR. PO SCH (06:05)
[2018-05-16 07:00] VITALS: BP 106/70
[2018-05-16] MEDS: INSULIN LISPRO 300 UNITS/3 ML INSULN.PEN. SQ SCH (08:00)
[2018-05-16] MEDS: glipiZIDE 5 MG TABLET PO SCH (08:29)
[2018-05-16] MEDS: LINAGLIPTIN 5 MG TABLET PO SCH (08:30)
[2018-05-16 08:36] VITALS: BP 106/70
[2018-05-16] MEDS: LISINOPRIL 10 MG TABLET PO SCH (08:36)
--- NOTE | 2018-05-16 09:02 | DISCH ---
DISCHARGE WITH HOME HEALTH DISCHARGE INFORMATION: Condition on Discharge: Stable CODE STATUS: Code Status: Full HOME HEALTH: Face to Face: I certify this patient is under my care and that I, or a nurse practitioner or physician's preschool assistant principal working with me, had a face to face encounter that meets the physician face to face encounter requirements with this patient on []. Physical Therapy For: Evalulation/Treatment POST DISCHARGE ORDERS: Activity Instructions for Disc: Activity as tolerated DIET AFTER DISCHARGE: Cardiac CERTIFICATION STATEMENT: Certification Statement: Certification Statement: Based on the above finding, I certify that this patient is confined to the home and needs intermittent long-term care, physical therapy and/or speech therapy, or continues to need occupational therapy.~ This patient is under my care, and I have initiated the establishment of the plan of care.~ This patient will be followed by myself or a community physician who will periodically review the plan of care. Home Meds Reported Medications Tramadol Hcl (TRAMADOL HCL) 50 Mg Tablet, 50 MG PO Q6HRS PRN for PAIN, TAB 05/12/18 Glipizide (GLUCOTROL) 5 Mg Tablet, 0.5 TAB PO BID for dm, #60 TAB 5 Refills 05/12/18 Insulin Glargine,Hum.rec.anlog (LANTUS SOLOSTAR) 100 Unit/1 Ml Insuln.pen, 11 UNIT SQ QHS for dm, #15 ML 3 Refills 05/12/18 Linagliptin (TRADJENTA) 5 Mg Tablet, 5 MG PO DAILY for TYPE 2 DIABETES, TAB 05/12/18 Pantoprazole Sodium (PROTONIX) 20 Mg Tablet.dr, 2 TAB PO DAILY for per list , # 30 TAB 05/12/18 Sertraline Hcl (ZOLOFT) 50 Mg Tablet, 1.5 TAB PO HS for per list , #30 TAB 2 Refills 05/12/18 Lisinopril (LISINOPRIL) 10 Mg Tablet, 1 TAB PO DAILY for HTN , #30 TAB 5 Refills 05/12/18 Clopidogrel Bisulfate (CLOPIDOGREL) 75 Mg Tablet, 1 TAB PO DAILY for per list , #90 TAB 1 Refill 05/12/18 Donepezil Hcl (ARICEPT) 10 Mg Tablet, 1 TAB PO QHS for per list , #30 TAB 5 Refills 05/12/18 Docusate Sodium (DOCUSATE SODIUM) 100 Mg Capsule, 1 CAP PO PRN DAILY PRN for CONSTIPATION, #30 CAP 05/12/18 Lidocaine/Prilocaine (LIDOCAINE-PRILOCAINE CREAM) 30 Gm Cream..g., 1 CHLOE TP PRN BID PRN for PAIN, #30 GM 1 Refill 05/12/18 Ondansetron (ONDANSETRON ODT) 4 Mg Tab.rapdis, 1 TAB PO PRN Q6-8HRS for nausea, #16 TAB 05/12/18 CLARITA SOLIZ MD May 16, 2018 09:02
--- NOTE | 2018-05-16 09:43 | DS ---
DATE OF DISCHARGE: 05/16/2018 HOSPITAL COURSE: The patient is a 73-year-old male patient who was originally seen at the [place] [facility] and diagnosed with left inguinal hernia incarceration and bowel obstruction. He was transferred to [facility] and from there, I transferred him to [facility]. He was seen by the surgical team who basically recommended surgical treatment for his incarcerated left inguinal hernia repair, creating at least partial small-bowel obstruction. The patient underwent a diagnostic laparoscopy and open repair of left inguinal hernia with mesh. The patient did very well postoperatively. We will start him on a clear liquid diet, which was advanced to a regular diet. He has had no further episode of pain. No nausea, vomiting. He had a bowel movement yesterday and he is passing flatus and as he remained hemodynamically stable, a decision was made to discharge him home to follow with Dr. Aguilar as an outpatient. PHYSICAL EXAMINATION: GENERAL: When I saw him this morning, he was sitting slightly propped up in bed, in no apparent respiratory distress. He was pale, but no jaundice, cyanosis or thyromegaly. No jugular venous distention. No limb edema. VITAL SIGNS: His heart rate was 66, blood pressure was 106/70, temperature was 98.1, respiratory rate was 16 and oxygen saturation was 94% on room air. HEAD, EYES, EARS, NOSE AND THROAT: Normocephalic, atraumatic. NECK: Supple. HEART: Showed normal first and second sounds. No gallop, rub or murmur. CHEST: Clear to auscultation. No crepitation or rhonchi. ABDOMEN: Scaphoid, soft, nontender with a left inguinal incision covered with dressing. There is no tenderness. No guarding or rigidity. No organomegaly. All hernial orifices intact. Bowel sounds normal. NEUROLOGIC: He was awake, alert, responding appropriately. All his cranial nerves are intact. He moves lower extremities without difficulty, ambulates with a walker. His intake over the last 24 hours was 880, output was 2650. LABORATORY WORK: Showed a serum sodium was 132, potassium 4.3, chloride 97, bicarbonate 27, anion gap of 8, BUN 19, creatinine 0.7, estimated GFR was 110 mL per minute, his glucose 140, calcium was 8.3. His white cell count was 11,000, hemoglobin 10, hematocrit 30, MCV 89 and platelet count 224. DISCHARGE MEDICATIONS: He will be discharged home to continue on Plavix 75 mg once a day, Colace 100 mg daily, Aricept 10 mg at bedtime, glipizide 0.5 mg twice a day, Lantus insulin 11 units at bedtime, lidocaine and prilocaine cream applied topically twice a day, Tradjenta 5 mg daily, lisinopril 10 mg once a day, ondansetron 4 mg every 6-8 hours, Protonix 40 mg once a day, sertraline 50 mg at bedtime, tramadol 50 mg every 6 hours. FINAL DISCHARGE DIAGNOSES: 1. Incarcerated left inguinal hernia, status post diagnostic laparoscopy with open repair of left inguinal hernia with mesh. 2. Postoperative paralytic ileus, resolved. 3. Neurogenic bladder with bladder outlet obstruction requiring indwelling Haynes catheter. 4. Severe osteoporosis, multiple compression fractures of thoracic and lumbar spine with resultant severe scoliosis. 5. Coronary artery disease. CLARITA SOLIZ MD DR: RIC/jon JOB#: [id number] / [id number]
[2018-05-16] MEDS: HYDROcodone/APAP 5/325MG 1 TAB TABLET PO PRN (09:58)
--- NOTE | 2018-05-16 10:19 | NUR ---
Pt has chronic Haynes and he gets it changed at the [facility] on the 15th of every month d/t chronic retention issues. Pt is discharging today. Pt's spouse has requested for Haynes to be changed before discharged due to weather conditions not allowing to drive her to [facility] after he gets home. Haynes replaced with a 16 Fr, 10 cc balloon as Pt had before. Pt tolerated well.
--- NOTE | 2018-05-16 10:29 | NUR ---
MANUEL following. Discussed with RN. Pt is ready to discharge home today. Pt will be transported by [facility] at 1130. Pt will have [facility]. MANUEL faxed discharge paperwork. RN notified. Pt choice and rights letter signed and placed on chart. No further SW needs.
--- NOTE | 2018-05-16 11:20 | NUR ---
Pt discharged home by w/c transport provided by hospital. for PT only. No changes from previous assessment. Pt's notified of plans for discharge, provided f/u appt and medication information which is also on the discharge documents sent with Pt.
== END 2018-05-16 11:20 | disposition home health service (06) | DRG 350 ==
LOC: 4 NORTH 16:29
PROVIDERS: ADMIT Internal Medicine; ATTEND Internal Medicine
PROC: 0YU60JZ Supplement Left Inguinal Region with Synthetic Substitute, Open Approach (ICD-10-PCS; principal; 2018-05-13 13:00)
PROC: 0WJG4ZZ Inspection of Peritoneal Cavity, Percutaneous Endoscopic Approach (ICD-10-PCS; 2018-05-13 13:00)
PROC: 5A09357 Assistance with Respiratory Ventilation, Less than 24 Consecutive Hours, Continuous Positive Airway Pressure (ICD-10-PCS; 2018-05-15)
DX: K40.30 Unilateral inguinal hernia, with obstruction, without gangrene, not specified as recurrent (principal); E43 Unspecified severe protein-calorie malnutrition; K56.0 Paralytic ileus; E11.9 Type 2 diabetes mellitus without complications; M80.88XD Other osteoporosis with current pathological fracture, vertebra(e), subsequent encounter for fracture with routine healing; I25.10 Atherosclerotic heart disease of native coronary artery without angina pectoris; N32.0 Bladder-neck obstruction; N31.9 Neuromuscular dysfunction of bladder, unspecified; M41.9 Scoliosis, unspecified; M19.90 Unspecified osteoarthritis, unspecified site; Z68.20 Body mass index [BMI] 20.0-20.9, adult; Z88.8 Allergy status to other drugs, medicaments and biological substances; Z88.7 Allergy status to serum and vaccine; Z79.84 Long term (current) use of oral hypoglycemic drugs; Z79.899 Other long term (current) drug therapy; Z79.02 Long term (current) use of antithrombotics/antiplatelets
CPT/HCPCS: 36415; 80048; 80053; 82962; 83036; 83615; 85007; 85025; 85027; 88302; A7015; C1781; J0330; J0696; J1100; J1815; J2001; J2405; J2704; J2710; J3010; J3490; J7030; J7120; Q0162; 97116